=== PATIENT | female | born 1995 | race Caucasian/White ===

== ENCOUNTER 2019-12-09 22:22 | Emergency (ER) | payer BC ==
[2019-12-09] MEDS ORDERED: Ondansetron 4 MG Tab.DIS PO ONE (22:40)
--- NOTE | 2019-12-09 23:14 | EDM.PDOC ---
ED HPI GENERAL MEDICAL PROBLEM - General Chief Complaint: Gastrointestinal Problem Stated Complaint: VOMITTING Time Seen by Provider: 12/09/19 23:08 Source of Information: Reports: Patient - History of Present Illness INITIAL COMMENTS - FREE TEXT/NARRATIVE: The patient is a 24-year-old female who presents to the ER for nausea and vomiting. She states that she has been throwing up all day long as well as with copious amounts of diarrhea. It is nonbloody. No fevers or chills but she generally does not feel well. She does have some prescriptions from her previous of Zofran tablets, not ODT, that she was unable to keep down. No coughing, no difficulty breathing, no other acute complaints. abdomina Pain Score (Numeric/FACES): 8 - Related Data Allergies Allergy/AdvReac Type Severity Reaction Status Date / Time No Known Allergies Allergy Verified 12/09/19 22:43 Home Meds: Home Meds Ondansetron [Zofran ODT] 4 mg PO Q4H PRN 5 Days #20 tab.dis 12/09/19 [Rx] Past Medical History HEENT History: Reports: None Cardiovascular History: Reports: None Respiratory History: Reports: None Gastrointestinal History: Reports: None Genitourinary History: Reports: None [employer] History: Reports: Musculoskeletal History: Reports: None Neurological History: Reports: None Psychiatric History: Reports: None Endocrine/Metabolic History: Reports: None Hematologic History: Reports: None Immunologic History: Reports: None Oncologic (Cancer) History: Reports: None Dermatologic History: Reports: None Social & Family History - Family History Family Medical History: Noncontributory - Tobacco Use Smoking Status *Q: Current Every Day Smoker Years of Tobacco use: 7 Packs/Tins Daily: 1 - Recreational Drug Use Recreational Drug Use: No ED ROS GENERAL - Review of Systems Review Of Systems: See Below (Positive for nausea vomiting diarrhea, negative for fevers, all other Positives and pertinent negatives as per HPI. All other pertinent systems were reviewed and are negative) ED EXAM, GI/ABD - Physical Exam Exam: See Below Text/Narrative:: Constitutional: No acute distress, Non-toxic appearance, looks like she does not feel well. HEENT: Normocephalic, Atraumatic, pupils equal round reactive to light, EOMI, oropharynx minimally dry Neck: Normal range of motion, No stridor, trachea midline Respiratory: No respiratory distress, No tachypnea, lungs are clear Cardiovascular: Minimally tachycardic Gastrointestinal: Soft, nontender nondistended Genital / Urinary: Deferred Musculoskeletal: All four extremities present and atraumatic Back: FROM Integument: Warm, Dry, Color is ethnicity appropriate, No rash, good skin turgor. Neuro: Alert, Awake, No focal deficits noted Psych: Affect, Judgement, mood normal Course - Vital Signs Text/Narrative:: History and exam sound like a classic gastroenteritis without any concerning symptomology per history or exam (no tenderness, fevers, bloody stools, etc., and she does not have any objective findings that would preclude her to need IV rehydration. Furthermore, the patient does have some Zofran tablets at home from a previous prescription but they are not ODT tablets. She is able to keep down fluids so she will be discharged with a prescription for Zofran ODT. Last Recorded V/S: Last Vital Signs Temp 35.9 C L 12/09/19 22:43 Pulse 107 H 12/09/19 22:43 Resp 14 12/09/19 22:43 BP 113/62 12/09/19 22:43 Pulse Ox 98 12/09/19 22:43 - Orders/Labs/Meds Meds: Medications Discontinued Medications Generic Name Dose Route Start Last Admin Trade Name Billy PRN Reason Stop Dose Admin Ondansetron HCl 4 mg 12/09/19 22:40 12/09/19 22:54 Zofran Odt PO 12/09/19 22:41 4 mg ONETIME ONE Administration Departure - Departure Time of Disposition: 23:15 Disposition: Home, Self-Care 01 Condition: Good Clinical Impression: Gastroenteritis - Discharge Information Instructions: Nausea and Vomiting, Adult, [id number] Referrals: PCP,None [Primary Care Provider] - Sepsis Event Note - Evaluation Sepsis Screening Result: No Definite Risk - Focused Exam Vital Signs: Vital Signs Temp Pulse Resp BP Pulse Ox 12/09/19 22:43 35.9 C L 107 H 14 113/62 98 Date Exam was Performed: 12/09/19 Time Exam was Performed: 23:08
== END 2019-12-09 23:31 | disposition home or self-care (01) ==
LOC: MW.ED 22:22
DX: K52.9 Noninfective gastroenteritis and colitis, unspecified (principal); F17.210 Nicotine dependence, cigarettes, uncomplicated
CPT/HCPCS: 99283; A9270